=== PATIENT | female | born 2000 | race Caucasian/White ===

== ENCOUNTER 2024-10-25 10:47 | Outpatient (CLI) | payer OTHER, SELFPAY ==
--- NOTE | ~2024-10-25 | XR_ITS ---
XR hip BI 2V w AP pelvis Ordering provider: Dianne Olvera, PA History: . Pain in lt and rt hip . Comparison: None. FINDINGS: BONES: No acute fracture or dislocation. HIP JOINT SPACES: Normal. SACROILIAC JOINT SPACES/LUMBAR SPINE: The sacroiliac joint spaces are normal. Normal visualized lower lumbar spine. PUBIC SYMPHYSIS: Normal. SOFT TISSUES: Normal. IMPRESSION: No acute osseous abnormality of the bilateral hips and pelvis. Reviewed, dictated and finalized at location A.
== END 2024-10-25 10:48 | disposition home or self-care (01) ==
LOC: ANHIMG 10:58
PROVIDERS: PCP Physician Assistant; Visit Provider Physician Assistant
DX: M25.551 Pain in right hip (principal); M25.552 Pain in left hip
CPT/HCPCS: 73521

== ENCOUNTER 2024-10-27 07:57 | Outpatient (RCR) | payer OTHER, SELFPAY ==
--- NOTE | 2024-10-27 08:57 | OPREHPOC ---
Outpatient Therapy Plan of Care This is a Multidisciplinary Plan of Care that may contain components documented by all disciplines (PT, OT, and ST.) PT Problem 1 PT Problem #1 Knowledge Deficit PT Goal 1 Goal / Goal Update 1* independent with HEP 2* demonstrate correct body mechanics with lifting from the floor 3* correct positioning with exercises Target Visit 8 PT Problem 2 PT Problem #2 Pain PT Goal 1 Goal / Goal Update * pt report pain in both hips, 3/10 at worst Target Visit 8 PT Problem 3 PT Problem #3 Impaired Flexibility PT Goal 1 Goal / Goal Update improve flexibility of hips, to decrease strain on low back and hips: hamstring length with supine SLR to 55' 1* R 2* L 3* L anterior hip-quad length with prone knee flexion to 140' Target Visit 8 PT Problem 4 PT Problem #4 Impaired Strength PT Goal 1 Goal / Goal Update increase abdominal strength to 4+/5, to improve stability to hips Target Visit 8
--- NOTE | 2024-10-27 08:57 | PTOPEVAL1 ---
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; is able to do all home and work tasks Reported Pain Level Pain Score Self Report Additional Pain Score Comments pain range in the past week 0-7/10; pain L>R hip; locking in hip joint, have to pop hip to release it- sometimes hurts with popping; some shooting pain from lateral hip to anterior thigh feels like hips are not right; hips ache decrease pain: pop hip/ move; heat blanket increase pain: after working more days in a row; sit about 20 minutes sleeping is OK, sometimes difficult to get comfortable with going to sleep due to pelvic aches is not taking any pain meds Assessment PT Clinical Summary Cynthia has the diagnosis of R and L hip pain, with gradual increase in pain, without injury. 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 xray per pt was negative. With the evaluation: she has good LE strength, with slight decrease in abdominal stability; decrease flexibility of bilateral hamstrings, L anterior hip-quads; poor standing posture of trunk and flat lumbar spine; with bilateral hip flexion in supine has increase in anterior hip pain. Skilled PT services are indicated for modalities to decrease hip pain, therapeutic exercises to increase flexibility of hips and increase strength of abdominals, for stability and education for HEP and posture, body mechanics. Plan of Care Interventions Electrical Stimulation,Hot Pack/Cold Pack,Manual Therapy,Neuro Re-education,Patient/Caregiver Education,Therapeutic Activities,Therapeutic Exercise,Ultrasound,Other Other Interventions taping PT Services Indicated Yes Treatment Frequency and 1-2x/wk for 8 visits Duration These treatments will address the objective and functional deficits as defined above. The patient will be advanced safely and appropriately in order for the patient to progress towards his/her prior level of function. Additional exercises will be introduced and as well as a comprehensive home exercise program upon discharge, if needed, ?to ensure carryover of functional gains achieved in the clinic. This treatment plan has been reviewed and agreement upon by the patient.
--- NOTE | 2025-03-10 15:27 | PCPTNOTE ---
PHYSICAL THERAPY DISCHARGE 03-10-25 LATE ENTRY AMAN Cummings has received the PT evaluation on October 27, for bilateral hip pain. She did not return for any treatment. Discharge PT.
== END 2025-01-25 23:59 | disposition home or self-care (01) ==
LOC: ANHPT 07:57
PROVIDERS: PCP Physician Assistant; Visit Provider Physician Assistant
DX: M25.551 Pain in right hip (principal)
CPT/HCPCS: 97110; 97161; 97530